=== PATIENT | male | born 1945 | race Caucasian/White ===

== ENCOUNTER 2017-06-02 23:53 | Emergency (ER) | payer OTHER ==
[2017-06-03 00:04] VITALS: TEMP 98.5; O2SAT 96
[2017-06-03] MEDS ORDERED: Albuterol-Ipratrop 3 mg / 0.5 (3 ml) UD INH STA (00:32)
--- NOTE | 2017-06-03 01:04 | C.PDOC ---
History Of Present Illness 71 y/o male with a Hx of diabetes c/o cough and SOB for 3 days. Patient has a paroxysmal cough and dyspnea in the ER. Denies fever, chills, chest pain, palpitations, or any other complaints. Time Seen by Provider: 06/03/17 00:30 Chief Complaint (Nursing): Shortness Of Breath History Per: Patient History/Exam Limitations: no limitations Onset/Duration Of Symptoms: Days (3) Current Symptoms Are (Timing): Still Present Severity: Mild Associated Symptoms: denies: Fever, Chills Recent travel outside of the [place]: No Additional History Per: Patient Past Medical History Vital Signs: Last Vital Signs Temp 98.5 F 06/03/17 00:01 Pulse 88 06/03/17 02:50 Resp 20 06/03/17 02:50 BP 128/78 06/03/17 02:50 Pulse Ox 96 06/07/17 01:11 - Medical History PMH: Diabetes Surgical History: No Surg Hx Family History: States: Unknown Family Hx - Social History Hx Alcohol Use: No Hx Substance Use: No - Immunization History Hx Tetanus Toxoid Vaccination: No Hx Influenza Vaccination: No Hx Pneumococcal Vaccination: No Review Of Systems Except As Marked, All Systems Reviewed And Found Negative. Constitutional: Negative for: Fever, Chills Cardiovascular: Negative for: Chest Pain, Palpitations Respiratory: Positive for: Cough, Shortness of Breath (Dyspnea) Physical Exam - Physical Exam Appears: Non-toxic, No Acute Distress Skin: Warm, Dry Head: Atraumatic, Normacephalic Oral Mucosa: Moist Cardiovascular: Rhythm Regular, No Murmur Respiratory: No Rales, Rhonchi (Bilateral rhonchi), No Wheezing Gastrointestinal/Abdominal: Soft, No Tenderness Neurological/Psych: Oriented x3, Normal Speech, Normal Cognition ED Course And Treatment - Laboratory Results Result Diagrams: 06/03/17 01:19 06/03/17 01:19 O2 Sat by Pulse Oximetry: 96 (RA) Pulse Ox Interpretation: Normal Medical Decision Making Medical Decision Making: Impression: 71 y/o male with a Hx of diabetes c/o cough and SOB for 3 days. Plans: * EKG * Blood work up * CXR * Albuterol * IV fluids * Nebulizer treatment On Re-examination pt feels better now, no SOB and is no longer having coughs. Disposition Counseled Patient/Family Regarding: Diagnosis - Disposition Referrals: [facility] [Outside] Disposition: HOME/ ROUTINE Disposition Time: 02:32 Condition: STABLE Prescriptions: Albuterol Sulfate [Proventil Hfa] 6.7 gm IH Q6 #1 hfa.aer.ad Azithromycin [Zithromax] 250 mg PO DAILY #7 tab MetFORMIN [glucoPHAGE] 1,000 mg PO BID #90 tab Instructions: Diabetes Mellitus Type 2 in Adults (ED), Acute Bronchitis (ED) Forms: [employer] ([place] Citizen) - POA Present On Arrival: None - Clinical Impression Clinical Impression: Bronchitis, Diabetes mellitus - Scribe Statement The provider has reviewed the documentation as recorded by the Scribe Janes healy All medical record entries made by the Scribe were at my direction and personally dictated by me. I have reviewed the chart and agree that the record accurately reflects my personal performance of the history, physical exam, medical decision making, and the department course for this patient. I have also personally directed, reviewed, and agree with the discharge instructions and disposition.
[2017-06-03 01:22] LABS: BASO # 0.1 K/uL (0.0-0.2); BASO % 1.4 % (0.0-2.0); EOS # 0.4 K/uL (0.0-0.7); EOS % 5.8 % (0.0-4.0); LYMPH # 1.8 K/uL (1.0-4.3); LYMPH % 25.1 % (20.0-40.0); MEAN CELL VOLUME 88.3 fL (80.0-94.0); MEAN CORPUSCULAR HGB CONC 32.9 g/dL (33.0-37.0); MONO # 0.9 K/uL (0.0-0.8); MONO % 12.3 % (0.0-10.0); NRBC % 0.1 % (0.0-2.0); RED CELL DISTRIBUTION WIDTH 14.7 % (11.5-14.5); WHITE BLOOD COUNT 7.2 K/uL (4.8-10.8)
[2017-06-03] MEDS ORDERED: Albuterol 0.083% Inhal Sol (2.5 mg/3 mL) UD ONE (01:24)
[2017-06-03 01:36] LABS: CHLORIDE 101 mmol/L (98-107); SODIUM 140 mmol/L (132-148)
[2017-06-03 01:37] LABS: POTASSIUM 4.3 mmol/L (3.6-5.2)
[2017-06-03 01:38] LABS: GFR AFRICAN-AMERICAN > 60
[2017-06-03 01:39] LABS: ALB/GLOB RATIO 1.3 (1.0-2.1); ALKALINE PHOSPHATASE 122 U/L (38-126); ALT/SGPT 57 U/L (21-72); AST/SGOT 30 U/L (17-59); BILIRUBIN,TOTAL 0.5 mg/dL (0.2-1.3); BLOOD UREA NITROGEN 19 mg/dL (9-20); CALCIUM 9.2 mg/dl (8.6-10.4); CARBON DIOXIDE 27 mmol/L (22-30); GLUCOSE,RANDOM 262 mg/dL (75-110); TOTAL PROTEIN 6.7 g/dL (6.3-8.3)
[2017-06-03 03:45] VITALS: RESP 20
[2017-06-03 03:48] VITALS: BP 128/78; PULSE 88
--- NOTE | 2017-06-03 08:31 | RAD ---
HISTORY: cough and SOB COMPARISON: No prior. TECHNIQUE: Chest PA and lateral FINDINGS: LUNGS: No active pulmonary disease. PLEURA: No significant pleural effusion identified. No pneumothorax apparent. Probable biapical pleural thickening CARDIOVASCULAR: Mild cardiomegaly. Tortuous/ectatic thoracic aorta OSSEOUS STRUCTURES: Moderate cervical and thoracic spondylosis. VISUALIZED UPPER ABDOMEN: Normal. OTHER FINDINGS: None. IMPRESSION: No consolidation to suggest an infiltrate Probable biapical pleural thickening Mild cardiomegaly. No bc pulmonary venous congestion
--- NOTE | 2017-06-04 12:28 | CARD ---
APPROVED REPORT EKG Measurement Heart [id number] KS 180P31 [id number] <Conclusion> Normal sinus rhythm Normal ECG
== END 2017-06-03 02:55 | disposition home or self-care (01) ==
LOC: C.ER 23:53
DX: J40 Bronchitis, not specified as acute or chronic (principal); E11.9 Type 2 diabetes mellitus without complications; Z79.84 Long term (current) use of oral hypoglycemic drugs
CPT/HCPCS: 71020; 80053; 83880; 84484; 85025; 85378; 93005; 99285; J2930

== ENCOUNTER 2017-06-05 08:45 | Emergency (ER) | payer OTHER ==
[2017-06-05 08:54] VITALS: O2SAT 95
[2017-06-05] MEDS ORDERED: Sodium Chloride 0.9% 1,000 ML IV ONE (09:38)
[2017-06-05] MEDS ORDERED: Sodium Chloride 0.9% 1,000 ML ONE (09:43)
[2017-06-05 09:51] LABS: HEMATOCRIT 44.2 % (35.0-51.0); MEAN CELL VOLUME 88.4 fL (80.0-94.0); MEAN CORPUSCULAR HEMOGLOBIN 29.3 pg (27.0-31.0); MEAN CORPUSCULAR HGB CONC 33.2 g/dL (33.0-37.0); MEAN PLATELET VOLUME 9.4 fL (7.2-11.7); RED CELL DISTRIBUTION WIDTH 14.3 % (11.5-14.5); WHITE BLOOD COUNT 6.2 K/uL (4.8-10.8)
[2017-06-05 10:07] LABS: CHLORIDE 100 mmol/L (98-107); POTASSIUM 4.2 mmol/L (3.6-5.2); SODIUM 136 mmol/L (132-148)
[2017-06-05 10:10] LABS: BLOOD UREA NITROGEN 24 mg/dL (9-20); CARBON DIOXIDE 26 mmol/L (22-30); GFR AFRICAN-AMERICAN > 60
[2017-06-05 10:11] LABS: CALCIUM 9.1 mg/dl (8.6-10.4); GLUCOSE,RANDOM 368 mg/dL (75-110)
--- NOTE | 2017-06-05 10:21 | C.PDOC ---
History Of Present Illness 71-year-old male, PMHx includes Diabetes, presents to the emergency department with complaints of a productive cough x3 days, that is associated upper abdominal pain. Patient seen in ER two days ago for same complaint and was prescribed Z-Pack that he is taking with minimal relief. Patient states he did not take any medication this morning, and ate breakfast. Time Seen by Provider: 06/05/17 09:27 Chief Complaint (Nursing): Cough, Cold, Congestion History Per: Patient History/Exam Limitations: no limitations Onset/Duration Of Symptoms: Days Current Symptoms Are (Timing): Still Present Past Medical History Reviewed: Historical Data, Nursing Documentation, Vital Signs Vital Signs: Last Vital Signs Temp 97.5 F L 06/05/17 10:27 Pulse 74 06/05/17 10:27 Resp 20 06/05/17 10:27 BP 131/74 06/05/17 10:27 Pulse Ox 95 06/05/17 11:14 Family History: States: No Known Family Hx - Social History Hx Alcohol Use: No Hx Substance Use: No - Immunization History Hx Tetanus Toxoid Vaccination: No Hx Influenza Vaccination: No Hx Pneumococcal Vaccination: No Review Of Systems Except As Marked, All Systems Reviewed And Found Negative. Constitutional: Negative for: Fever, Chills Respiratory: Positive for: Cough, Sputum Gastrointestinal: Positive for: Abdominal Pain. Negative for: Nausea, Vomiting Neurological: Negative for: Weakness, Numbness, Headache, Dizziness Physical Exam - Physical Exam Appears: Non-toxic, No Acute Distress (no respiratory distress) Skin: Warm, Dry, No Rash Head: Atraumatic, Normacephalic Eye(s): bilateral: Normal Inspection, PERRL, EOMI Ear(s): Bilateral: Normal Nose: Normal Oral Mucosa: Moist Lips: Normal Appearing Neck: Normal ROM Chest: Symmetrical Cardiovascular: Rhythm Regular, No Murmur Respiratory: Normal Breath Sounds, No Accessory Muscle Use, No Rales, No Rhonchi , No Wheezing Gastrointestinal/Abdominal: Bowel Sounds (active), Soft, No Tenderness, No Distention, No Guarding Back: Normal Inspection, No Vertebral Tenderness, No Paraspinal Tenderness Extremity: Bilateral: Atraumatic, No Pedal Edema, Normal Color And Temperature, Normal ROM Neurological/Psych: Oriented x3, Normal Speech Gait: Steady ED Course And Treatment - Laboratory Results Result Diagrams: 06/05/17 09:44 06/05/17 09:44 Lab Interpretation: No Changes Compared To Prior Results (hyperglycemia) ECG: Interpreted By Me, Viewed By Me ECG Rhythm: Sinus Rhythm ECG Interpretation: No Acute Changes Rate From EC O2 Sat by Pulse Oximetry: 95 Pulse Ox Interpretation: Normal Medical Decision Making Medical Decision Making: Impression: 71 y.o PMH DM with cough already on Z-pack Prior records reviewed: Patient was seen 2 days ago 06/03/17 these symptoms with full workup including labs and CXR, no pneumonia or DKA Plan: * Labs * IV NS Progress: Labs reviewed shows hyperglycemia, patient did not take meds this morning and ate breakfast no leukocytosis or other significant changes in labs Patient has no fever stable vitals and in no respiratory distress. patient is a smoker and smokes 10 cigarettes daily. I advised patient on smoking cessation and explain cough and symptoms may persist since he is a smoker. Inform patient to expect cough to last few weeks and to finish Z-pack use inhaler and can prescribe tessalon. Disposition Counseled Patient/Family Regarding: Diagnosis, Need For Followup, Rx Given - Disposition Disposition: HOME/ ROUTINE Disposition Time: 10:20 Condition: STABLE Additional Instructions: Finish course of antibiotics and use inhaler as needed Avoid smoking Take your diabetic medication and follow up with your doctor Prescriptions: Benzonatate [Tessalon Perles] 100 mg PO TID #30 sgl Instructions: Acute Bronchitis (ED) Forms: [facility] (Portuguese) - POA Present On Arrival: Poor Glycemic Control - Clinical Impression Clinical Impression: Bronchitis, Diabetes mellitus - Scribe Statement The provider has reviewed the documentation as recorded by the Scribe (Gerald Shay) All medical record entries made by the Scribe were at my direction and personally dictated by me. I have reviewed the chart and agree that the record accurately reflects my personal performance of the history, physical exam, medical decision making, and the department course for this patient. I have also personally directed, reviewed, and agree with the discharge instructions and disposition.
[2017-06-05 10:28] VITALS: BP 131/74; PULSE 74; RESP 20; TEMP 97.5
--- NOTE | 2017-06-07 12:29 | CARD ---
APPROVED REPORT EKG Measurement Heart [id number] MS 162P43 [id number] <Conclusion> Normal sinus rhythm Left anterior fascicular block Abnormal ECG
== END 2017-06-05 10:33 | disposition home or self-care (01) ==
LOC: C.ER 08:45
DX: J40 Bronchitis, not specified as acute or chronic (principal); F17.210 Nicotine dependence, cigarettes, uncomplicated; E11.65 Type 2 diabetes mellitus with hyperglycemia
CPT/HCPCS: 80048; 82948; 85027; 93005; 96360; 99285; J7040

== ENCOUNTER 2017-06-25 06:38 | Emergency (ER) | payer MEDICARE, OTHER ==
[2017-06-25] MEDS ORDERED: Sodium Chloride 0.9% 1,000 ML IV ONE (07:21)
--- NOTE | 2017-06-25 07:26 | C.PDOC ---
History Of Present Illness <Ji Limon - Last Filed: 06/25/17 09:26> <Suni Reveles - Last Filed: 06/25/17 19:27> 72 y/o male c/o intermittent stabbing pain in upper abdomen that radiates to the back x 3 days and to left upper quadrant, last bm 2 days ago. +subjective fever, no nausea. vomiting or diarrhea. c/o urinary hesitancy, no dysuria. no cp or sob. (Suni Reveles) <Ji Limon - Last Filed: 06/25/17 09:26> <Suni Reveles - Last Filed: 06/25/17 19:27> Time Seen by Provider: 06/25/17 07:10 Chief Complaint (Nursing): Abdominal Pain Past Medical History Family History: States: Unknown Family Hx - Social History Hx Alcohol Use: No Hx Substance Use: No - Immunization History Hx Tetanus Toxoid Vaccination: No Hx Influenza Vaccination: No Hx Pneumococcal Vaccination: No <Suni Reveles - Last Filed: 06/25/17 19:27> Vital Signs: Last Vital Signs Temp 98.6 F 06/25/17 12:24 Pulse 78 06/25/17 12:24 Resp 18 06/25/17 12:24 BP 141/84 06/25/17 12:24 Pulse Ox 95 06/25/17 13:13 Review Of Systems Constitutional: Positive for: Fever. Negative for: Chills Cardiovascular: Negative for: Chest Pain Respiratory: Negative for: Cough, Shortness of Breath Gastrointestinal: Positive for: Abdominal Pain. Negative for: Nausea, Vomiting Genitourinary: Positive for: Frequency. Negative for: Dysuria Musculoskeletal: Positive for: Back Pain Skin: Negative for: Rash <Suni Reveles - Last Filed: 06/25/17 19:27> Physical Exam - Physical Exam Appears: Other (appears very uncomfortable) Skin: Warm, Dry Head: Atraumatic, Normacephalic Oral Mucosa: Dry Lips: Other (chapped) Neck: Supple Chest: No Deformity, No Tenderness Cardiovascular: Rhythm Regular, No Murmur Respiratory: Decreased Breath Sounds (all cleary) Gastrointestinal/Abdominal: Bowel Sounds (hypoactive), Soft, Tenderness ( diffuse tenderness, worst in ruq, epigastric and luq with voluntary guarding. no distension ) Pulses: Left Femoral: Normal, Right Femoral: Normal, Left Dorsalis Pedis: Normal , Right Dorsalis Pedis: Normal Neurological/Psych: Oriented x3, Normal Speech, Normal Cognition <Suni Reveles - Last Filed: 06/25/17 19:27> ED Course And Treatment - Laboratory Results Result Diagrams: 06/25/17 07:56 06/25/17 07:56 <Ji Limon - Last Filed: 06/25/17 09:26> - Laboratory Results Result Diagrams: 06/25/17 07:56 06/25/17 07:56 ECG: Interpreted By Me, Viewed By Me ECG Rhythm: Sinus Rhythm ECG Interpretation: No Acute Changes Rate From EC (bpm) O2 Sat by Pulse Oximetry: 95 (ra) - Other Rad cxr X-Ray: Interpreted by Me, Viewed By Me Interpretation: FINDINGS: LUNGS: No active pulmonary disease. PLEURA: No significant pleural effusion identified, no pneumothorax apparent. CARDIOVASCULAR: Normal. OSSEOUS STRUCTURES: No significant abnormalities. VISUALIZED UPPER ABDOMEN: Normal. OTHER FINDINGS: None. IMPRESSION: No active disease. - CT Scan/US CT Abdomen and Pelvis with contrast Other Rad Studies (CT/US): Read By Radiologist, Radiology Report Reviewed CT/US Interpretation: FINDINGS: LOWER THORAX: Unremarkable. LIVER: Hepatic steatosis. No focal masses. No intrahepatic bile duct dilatation or perihepatic ascites. Punctate calcified granuloma. GALLBLADDER AND BILE DUCTS : Unremarkable. PANCREAS: Unremarkable. No gross lesion or ductal dilatation. SPLEEN: No significant interval change compared to the prior examination(s). Punctate calcifications consistent with exposure to granulomatous disease. ADRENALS: No significant interval change compared to the prior examination(s). KIDNEYS AND URETERS: Unremarkable. No hydronephrosis. No solid mass. VASCULATURE: Unremarkable. No aortic aneurysm. BOWEL: Diverticulosis without an acute inflammatory component or other associated pathologic process. APPENDIX: Normal appendix. PERITONEUM: Unremarkable. No free fluid. No free air. LYMPH NODES: Unremarkable. No enlarged lymph nodes. BLADDER: Unremarkable. REPRODUCTIVE: No significant interval change compared to the prior examination(s). BONES: No acute fracture. OTHER FINDINGS: None. IMPRESSION: No acute findings related to/ accounting for the clinical presentation. Additional benign and/or incidental findings described above. No significant interval change compared to the prior examination(s). <Suni Reveles - Last Filed: 06/25/17 19:27> Medical Decision Making <Ji Limon - Last Filed: 06/25/17 09:26> <Suni Reveles - Last Filed: 06/25/17 19:27> Medical Decision Making: pt with normal labs, neg ua, neg ct for acute pathology. will d/c pt with colace , tylenol and f/u gi, (Suni Reveles) Disposition <Ji Limon - Last Filed: 06/25/17 09:26> Counseled Patient/Family Regarding: Studies Performed, Diagnosis, Need For Followup, Rx Given - Disposition Disposition Time: 13:09 <Suni Reveles - Last Filed: 06/25/17 19:27> - Disposition Referrals: [facility] [Outside] [facility] [Outside] Prachi Horner [Staff Provider] - Disposition: HOME/ ROUTINE Condition: STABLE Additional Instructions: Follow up in medical clinic and with Dr Horner, GI doctor). Take Colace 1-2 times a day with meals, this is a stool softener. Drink more fluids. Return to ER for any worsening symptoms, or other concerns. Prescriptions: Docusate Sodium [Colace] 100 mg PO BID #60 capsule Instructions: Acute Abdominal Pain (ED), Gas and Bloating (ED) Forms: [facility] (Divehi), General Discharge Instructions - Clinical Impression Clinical Impression: Abdominal pain, Constipation
[2017-06-25] MEDS ORDERED: Iohexol 240 (50 ml) PO STA (07:49)
[2017-06-25] MEDS ORDERED: Sodium Chloride 0.9% 1,000 ML ONE (07:57)
[2017-06-25] MEDS ORDERED: Iohexol 240 (50 ml) ONE (07:57)
[2017-06-25 08:06] LABS: BASO # 0.1 K/uL (0.0-0.2); EOS # 0.3 K/uL (0.0-0.7); EOS % 3.9 % (0.0-4.0); HEMATOCRIT 45.6 % (35.0-51.0); LYMPH # 1.1 K/uL (1.0-4.3); LYMPH % 14.4 % (20.0-40.0); MEAN CELL VOLUME 86.6 fL (80.0-94.0); MEAN CORPUSCULAR HEMOGLOBIN 29.5 pg (27.0-31.0); MEAN CORPUSCULAR HGB CONC 34.1 g/dL (33.0-37.0); MEAN PLATELET VOLUME 9.1 fL (7.2-11.7); MONO # 0.7 K/uL (0.0-0.8); MONO % 8.8 % (0.0-10.0); RED CELL DISTRIBUTION WIDTH 14.5 % (11.5-14.5); WHITE BLOOD COUNT 7.5 K/uL (4.8-10.8)
[2017-06-25 08:14] LABS: CHLORIDE 101 mmol/L (98-107); POTASSIUM 4.4 mmol/L (3.6-5.2); SODIUM 140 mmol/L (132-148)
[2017-06-25 08:18] LABS: ALB/GLOB RATIO 1.4 (1.0-2.1); ALKALINE PHOSPHATASE 75 U/L (38-126); AST/SGOT 30 U/L (17-59); BILIRUBIN,TOTAL 0.8 mg/dL (0.2-1.3); CARBON DIOXIDE 26 mmol/L (22-30); GFR AFRICAN-AMERICAN > 60
[2017-06-25 08:19] LABS: ALT/SGPT 53 U/L (21-72); BLOOD UREA NITROGEN 12 mg/dL (9-20); CALCIUM 9.8 mg/dl (8.6-10.4); GLUCOSE,RANDOM 151 mg/dL (75-110)
[2017-06-25 08:24] LABS: RBC URINE 1 /hpf (0-3); URINE BILIRUBIN NEGATIVE (NEGATIVE); URINE BLOOD NEGATIVE (NEGATIVE); URINE COLOR Yellow (YELLOW); URINE GLUCOSE (UA) NORMAL (Normal); URINE KETONE NEGATIVE (NEGATIVE); URINE LEUKOCYTE ESTERASE NEG Leu/uL (Negative); URINE PROTEIN NEGATIVE (NEGATIVE); URINE UROBILINOGEN NORMAL mg/dL (0.2-1.0); WBC URINE < 1 /hpf (0-5)
--- NOTE | 2017-06-25 09:11 | RAD ---
HISTORY: luq pain, dec bs COMPARISON: 06/03/2027 [facility] FINDINGS: LUNGS: No active pulmonary disease. PLEURA: No significant pleural effusion identified, no pneumothorax apparent. CARDIOVASCULAR: Normal. OSSEOUS STRUCTURES: No significant abnormalities. VISUALIZED UPPER ABDOMEN: Normal. OTHER FINDINGS: None. IMPRESSION: No active disease.
[2017-06-25] MEDS ORDERED: Iodixanol 320 mg/ml 150 ml Bottle IV ONE (10:17)
--- NOTE | 2017-06-25 12:08 | CT ---
PROCEDURE: CT Abdomen and Pelvis with contrast HISTORY: Unspecified abdominal pain. COMPARISON: 10/11/2015. CT abdomen and pelvis. TECHNIQUE: Contrast dose: 100 cc Visipaque 320. Radiation dose: Total exam DLP = 1213.04 mGy-cm. This CT exam was performed using one or more of the following dose reduction techniques: Automated exposure control, adjustment of the mA and/or kV according to patient size, and/or use of iterative reconstruction technique. FINDINGS: LOWER THORAX: Unremarkable. LIVER: Hepatic steatosis. No focal masses. No intrahepatic bile duct dilatation or perihepatic ascites. Punctate calcified granuloma. GALLBLADDER AND BILE DUCTS: Unremarkable. PANCREAS: Unremarkable. No gross lesion or ductal dilatation. SPLEEN: No significant interval change compared to the prior examination(s). Punctate calcifications consistent with exposure to granulomatous disease. ADRENALS: No significant interval change compared to the prior examination(s). KIDNEYS AND URETERS: Unremarkable. No hydronephrosis. No solid mass. VASCULATURE: Unremarkable. No aortic aneurysm. BOWEL: Diverticulosis without an acute inflammatory component or other associated pathologic process. APPENDIX: Normal appendix. PERITONEUM: Unremarkable. No free fluid. No free air. LYMPH NODES: Unremarkable. No enlarged lymph nodes. BLADDER: Unremarkable. REPRODUCTIVE: No significant interval change compared to the prior examination(s). BONES: No acute fracture. OTHER FINDINGS: None. IMPRESSION: No acute findings related to/accounting for the clinical presentation. Additional benign and/or incidental findings described above. No significant interval change compared to the prior examination(s).
[2017-06-25 12:25] VITALS: BP 141/84; PULSE 78; RESP 18; TEMP 98.6
[2017-06-25 13:11] VITALS: O2SAT 95
== END 2017-06-25 13:18 | disposition home or self-care (01) ==
LOC: C.ER 06:38 → SUPCPDRO 06:38 → C.ER 13:18
DX: K59.00 Constipation, unspecified (principal); R10.9 Unspecified abdominal pain
CPT/HCPCS: 71010; 74177; 80053; 81001; 83690; 85025; 96374; 96375; 99285; J2270; J7040; Q9966; Q9967

== ENCOUNTER 2017-08-07 10:50 | Emergency (ER) | payer OTHER ==
[2017-08-07 11:05] VITALS: BMI 33.2
[2017-08-07 11:07] VITALS: RESP 18; TEMP 98; O2SAT 96
[2017-08-07 11:49] LABS: BASO # 0.1 K/uL (0.0-0.2); EOS # 0.2 K/uL (0.0-0.7); EOS % 2.9 % (0.0-4.0); HEMATOCRIT 45.3 % (35.0-51.0); LYMPH # 1.4 K/uL (1.0-4.3); LYMPH % 18.4 % (20.0-40.0); MEAN CELL VOLUME 87.6 fL (80.0-94.0); MEAN CORPUSCULAR HEMOGLOBIN 29.4 pg (27.0-31.0); MEAN CORPUSCULAR HGB CONC 33.6 g/dL (33.0-37.0); MEAN PLATELET VOLUME 9.5 fL (7.2-11.7); MONO # 0.7 K/uL (0.0-0.8); MONO % 8.8 % (0.0-10.0); NRBC % 0.1 % (0.0-2.0); RED CELL DISTRIBUTION WIDTH 14.4 % (11.5-14.5); WHITE BLOOD COUNT 7.6 K/uL (4.8-10.8)
[2017-08-07] MEDS ORDERED: Sodium Chloride 0.9% 500 ML IV ONE ×2 (11:51→12:03)
[2017-08-07 12:19] LABS: RBC URINE < 1 /hpf (0-3); URINE BILIRUBIN NEGATIVE (NEGATIVE); URINE BLOOD NEGATIVE (NEGATIVE); URINE COLOR Yellow (YELLOW); URINE GLUCOSE (UA) 3+ mg/dL (Normal); URINE KETONE NEGATIVE (NEGATIVE); URINE LEUKOCYTE ESTERASE NEG Leu/uL (Negative); URINE PROTEIN NEGATIVE (NEGATIVE); URINE UROBILINOGEN NORMAL mg/dL (0.2-1.0); WBC URINE < 1 /hpf (0-5)
[2017-08-07 12:26] LABS: CHLORIDE 98 mmol/L (98-107); SODIUM 131 mmol/L (132-148)
[2017-08-07 12:29] LABS: ALB/GLOB RATIO 1.6 (1.0-2.1); ALKALINE PHOSPHATASE 93 U/L (38-126); ALT/SGPT 56 U/L (21-72); AST/SGOT 39 U/L (17-59); BLOOD UREA NITROGEN 15 mg/dL (9-20); CARBON DIOXIDE 23 mmol/L (22-30); GFR AFRICAN-AMERICAN > 60; TOTAL PROTEIN 6.7 g/dL (6.3-8.3)
[2017-08-07 12:30] LABS: CALCIUM 9.4 mg/dl (8.6-10.4); GLUCOSE,RANDOM 336 mg/dL (75-110)
[2017-08-07] MEDS ORDERED: (Novolin R) Insulin Human Regular 100 units/ml vial IV STA (12:31)
--- NOTE | 2017-08-07 12:35 | C.PDOC ---
History Of Present Illness 72 year old male presents to ED for evaluation of upper abdominal pain radiating to his back that developed last night at 11pm, but pain worsened in the morning. Pt states that he has history of peptic ulcer, and current symptoms feel similar. Patient also states that his blood sugar level was over 400 last night, states that he ran out of his Metformin 1 week ago. Patient does not have PMD, and has been going to ER to get his diabetes med. Patient denies chest pain, shortness of breath, vomiting, diarrhea, dysuria, or fever. Time Seen by Provider: 08/07/17 10:56 Chief Complaint (Nursing): Abdominal Pain History Per: Patient History/Exam Limitations: no limitations Onset/Duration Of Symptoms: Days (1) Current Symptoms Are (Timing): Still Present Severity: Mild Radiation Of Pain To:: Back Quality Of Discomfort: "Pain" Associated Symptoms: Back Pain. denies: Fever, Chills, Chest Pain, Urinary Symptoms Exacerbating Factors: None Alleviating Factors: None Additional History Per: Patient Past Medical History Reviewed: Historical Data, Nursing Documentation, Vital Signs Vital Signs: Last Vital Signs Temp 98 F 08/07/17 13:22 Pulse 72 08/07/17 13:22 Resp 18 08/07/17 13:22 BP 144/91 H 08/07/17 13:22 Pulse Ox 96 08/07/17 13:22 - Medical History PMH: No Chronic Diseases Family History: States: No Known Family Hx - Social History Hx Alcohol Use: No Hx Substance Use: No - Immunization History Hx Tetanus Toxoid Vaccination: No Hx Influenza Vaccination: No Hx Pneumococcal Vaccination: No Review Of Systems Except As Marked, All Systems Reviewed And Found Negative. Constitutional: Negative for: Fever, Chills Cardiovascular: Negative for: Chest Pain, Palpitations Respiratory: Negative for: Cough, Shortness of Breath Gastrointestinal: Positive for: Abdominal Pain (upper). Negative for: Nausea, Vomiting, Diarrhea, Constipation Genitourinary: Negative for: Dysuria, Frequency, Hematuria Musculoskeletal: Positive for: Back Pain Neurological: Negative for: Headache, Dizziness Physical Exam - Physical Exam Appears: Well, Non-toxic, No Acute Distress Skin: Normal Color, Warm, Dry, No Rash Head: Normacephalic Eye(s): bilateral: Normal Inspection Oral Mucosa: Moist Cardiovascular: Rhythm Regular Respiratory: Normal Breath Sounds, No Rales, No Rhonchi, No Wheezing Gastrointestinal/Abdominal: Bowel Sounds, Soft, Tenderness (epigastric mild TTP) , No Guarding, No Rebound, Other ((-)Castillo's) Back: Normal Inspection, No CVA Tenderness Extremity: Normal ROM Neurological/Psych: Oriented x3 ED Course And Treatment - Laboratory Results Result Diagrams: 08/07/17 11:43 08/07/17 11:43 ECG: Interpreted By Me, Viewed By Me (NSR 78 bpm, left axis deviation, no acute ST/T wave changes) ECG Interpretation: No Acute Changes O2 Sat by Pulse Oximetry: 96 (RA) Pulse Ox Interpretation: Normal Progress Note: Blood work, UA, EKG ordered and reviewed. Patient was given IV Protonix, IV NS bolus, IV insulin. Reevaluation Time: 13:10 Reassessment Condition: Improved (Patient reassessed, is resting comfortably and states he feels better. On exam, abdomen is soft and nontender. Patient given Rx for metformin, and he was instructed to follow up with medical clinic in 1-2 days without fail. He understands he needs a regular PMD/clinic to monitor his diabetes. Patient understands he should return to ED if symptoms worsen.) Disposition Counseled Patient/Family Regarding: Diagnosis, Need For Followup, Rx Given - Disposition Referrals: [facility] [Outside] Disposition: HOME/ ROUTINE Disposition Time: 13:10 Condition: STABLE Additional Instructions: FOLLOW UP IN THE MEDICAL CLINIC IN 1-2 DAYS USE MEDICATIONS DIRECTED RETURN TO ER IF SYMPTOMS WORSEN Prescriptions: MetFORMIN [glucoPHAGE] 1,000 mg PO BID #60 tab Pantoprazole Sodium [Protonix] 20 mg PO DAILY #30 ect Instructions: Diabetic Hyperglycemia (ED) Forms: [employer] (Yoruba) Print Language: BENGALI - Clinical Impression Clinical Impression: Hyperglycemia, Peptic ulcer - Scribe Statement The provider has reviewed the documentation as recorded by the Jaquelineibelly Henderson All medical record entries made by the Jaquelineibelly were at my direction and personally dictated by me. I have reviewed the chart and agree that the record accurately reflects my personal performance of the history, physical exam, medical decision making, and the department course for this patient. I have also personally directed, reviewed, and agree with the discharge instructions and disposition.
[2017-08-07] MEDS ORDERED: (Novolin R) Insulin Human Regular 100 units/ml vial ONE (12:46)
[2017-08-07 13:23] VITALS: BP 144/91; PULSE 72
--- NOTE | 2017-08-09 11:05 | CARD ---
APPROVED REPORT EKG Measurement Heart [id number] [place] 174P25 [id number] <Conclusion> Normal sinus rhythm Left axis deviation Minimal voltage criteria for LVH, may be normal variant Abnormal ECG
== END 2017-08-07 13:30 | disposition home or self-care (01) ==
LOC: C.ER 10:50
DX: E11.65 Type 2 diabetes mellitus with hyperglycemia (principal); K27.9 Peptic ulcer, site unspecified, unspecified as acute or chronic, without hemorrhage or perforation; Z79.84 Long term (current) use of oral hypoglycemic drugs
CPT/HCPCS: 80053; 81001; 82009; 82948; 83690; 85025; 87086; 96374; 99285; C9113; J7040

== ENCOUNTER 2017-10-03 05:51 | Emergency (ER) | payer OTHER ==
[2017-10-03 05:52] VITALS: BMI 33.2
[2017-10-03 06:10] VITALS: O2SAT 96
[2017-10-03 06:52] LABS: URINE BILIRUBIN NEGATIVE (NEGATIVE); URINE BLOOD NEGATIVE (NEGATIVE); URINE CLARITY Clear (Clear); URINE COLOR Yellow (YELLOW); URINE GLUCOSE (UA) NORMAL (Normal); URINE LEUKOCYTE ESTERASE NEG Leu/uL (Negative); URINE NITRATE NEGATIVE (NEGATIVE); URINE PROTEIN NEGATIVE (NEGATIVE); URINE UROBILINOGEN NORMAL mg/dL (0.2-1.0)
[2017-10-03 06:53] LABS: BASO # 0.1 K/uL (0.0-0.2); BASO % 1.1 % (0.0-2.0); EOS # 0.3 K/uL (0.0-0.7); EOS % 4.5 % (0.0-4.0); LYMPH # 1.3 K/uL (1.0-4.3); LYMPH % 21.8 % (20.0-40.0); MEAN CELL VOLUME 88.4 fL (80.0-94.0); MEAN CORPUSCULAR HEMOGLOBIN 30.5 pg (27.0-31.0); MEAN CORPUSCULAR HGB CONC 34.5 g/dL (33.0-37.0); MEAN PLATELET VOLUME 9.7 fL (7.2-11.7); MONO # 0.5 K/uL (0.0-0.8); MONO % 8.7 % (0.0-10.0); NEUT # 3.7 K/uL (1.8-7.0); NEUT % 63.9 % (50.0-75.0); RBC 4.93 Mil/uL (4.40-5.90); RED CELL DISTRIBUTION WIDTH 14.3 % (11.5-14.5); WHITE BLOOD COUNT 5.9 K/uL (4.8-10.8)
[2017-10-03 06:55] LABS: ALB/GLOB RATIO 1.3 (1.0-2.1); ALBUMIN 3.9 g/dL (3.5-5.0); ALT/SGPT 53 U/L (21-72); AST/SGOT 36 U/L (17-59); BLOOD UREA NITROGEN 15 mg/dL (9-20); CALCIUM 9.4 mg/dl (8.6-10.4); GFR AFRICAN-AMERICAN > 60; GFR NON-AFRICAN AMERICAN > 60; LIPASE 133 U/L (23-300)
[2017-10-03] MEDS ORDERED: Morphine 4 MG/ML VIAL ONE (06:58)
[2017-10-03] MEDS ORDERED: Lactated Ringer's 1,000 ML IV ONE (07:13)
[2017-10-03 07:20] VITALS: BP 193/89; PULSE 63; RESP 20; TEMP 98.2
--- NOTE | 2017-10-03 07:32 | C.PDOC ---
History Of Present Illness 72 yr old male with PMHx of renal colic, brought in via EMS, presents to the ER for evaluation of crampy abdominal pain for the past 1 day. Patient was diagnosed 3 days ago at a [facility] hospital. Patient states the right groin pain has resolved and now has periumbilical and epigastric pain, taking 1 tab of Percocet 4x a day, but has no renal colic pain. Denies fever, chills, chest pain , SOB, nausea, vomiting, diarrhea, dysuria, hematuria, weakness or numbness. taking Percocet 1 tab Q6H for the past 2 days for passed renal stone 3 days ago eval @ [facility]. Time Seen by Provider: 10/03/17 06:55 Chief Complaint (Nursing): Abdominal Pain History Per: Patient History/Exam Limitations: no limitations Onset/Duration Of Symptoms: Days (1) Current Symptoms Are (Timing): Still Present Location Of Pain/Discomfort: Epigastric, Periumbilical Past Medical History Reviewed: Historical Data, Nursing Documentation, Vital Signs Vital Signs: Last Vital Signs Temp 98.2 F 10/03/17 06:27 Pulse 63 10/03/17 06:27 Resp 20 10/03/17 06:27 BP 193/89 H 10/03/17 06:27 Pulse Ox 96 10/03/17 07:48 Family History: States: No Known Family Hx - Social History Hx Alcohol Use: No Hx Substance Use: No - Immunization History Hx Tetanus Toxoid Vaccination: No Hx Influenza Vaccination: No Hx Pneumococcal Vaccination: No Review Of Systems Except As Marked, All Systems Reviewed And Found Negative. Constitutional: Negative for: Fever, Chills Cardiovascular: Negative for: Chest Pain Respiratory: Negative for: Shortness of Breath Gastrointestinal: Positive for: Abdominal Pain. Negative for: Nausea, Vomiting , Diarrhea Genitourinary: Negative for: Dysuria, Hematuria Neurological: Negative for: Weakness, Numbness Physical Exam - Physical Exam Appears: Non-toxic, In Acute Distress (Mild) Skin: Warm, Dry, No Rash Head: Atraumatic, Normacephalic Oral Mucosa: Moist Respiratory: Normal Breath Sounds, No Rales, No Rhonchi, No Stridor, No Wheezing Gastrointestinal/Abdominal: Soft, No Guarding, No Rebound, Other (Dull and tympanic) Back: Normal Inspection, No CVA Tenderness Extremity: Normal ROM, No Swelling Neurological/Psych: Oriented x3, Normal Speech, Normal Motor, Normal Sensation ED Course And Treatment - Laboratory Results Result Diagrams: 10/03/17 06:40 10/03/17 06:40 Lab Interpretation: Normal (ua neg, trop neg.) ECG: Interpreted By Me ECG Rhythm: Sinus Rhythm O2 Sat by Pulse Oximetry: 96 (RA) Pulse Ox Interpretation: Normal - Radiology CXR: Interpreted by Me, Viewed By Me CXR Interpretation: Yes: No Acute Disease - Other Rad X-Ray - Obstructive Series X-Ray: Interpreted by Me, Viewed By Me Interpretation: +FOS Medical Decision Making Medical Decision Making: PLAN: * X-Ray - Obstructive Series * Troponin * CBC * CMP * Urinalysis * Morphine IVP * Lactated Ringer IV NOTE: epigastric and rodrigo-umbilical colic and h/o same. normal w/u 10/26 and 06/[address] scans. Pt seen @ [facility] 2 wks ago ? dx of renal colic and 2-3 days ago @ [facility] for same. Pt taking Percocet for chronic pains of ? 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 Seems pt evaluated for prob passing kidney stone R side approx 2-3 days ago @ [facility], now with chronic constipation due to same, seen on films and normal labs/UA. though atherosclerotic dz noted on prior CT's, LOW susp of mesenteeric ischemia at this time. pt asymptomatic after ED tx. Disposition Doctor Will See Patient In The: Office Counseled Patient/Family Regarding: Studies Performed, Diagnosis - Disposition Referrals: [facility] [Outside] [facility] [Outside] Disposition: HOME/ ROUTINE Disposition Time: 07:43 Condition: GOOD Additional Instructions: STOp taking Percocet daily- this is used ONLY for acute pain and causes SEVERE CONSTIPATION Drink a laxative now- one bottle of Mag Citrate- and re-evaluate your abdominal discomfort after using the bathroom 2-3 times today Continue Colace 100 mg twice a day (stool softner) to help PREVENT constipation. Drink more water. eat 7 fresh fruits and vegetables daily. Follow-up in our outpatient Clinic as needed. Prescriptions: Docusate [Colace] 100 mg PO BID #60 cap Magnesium Citrate [[facility] Magnesium Citrate] 300 ml PO ONCE PRN #1 bottle PRN Reason: Constipation Instructions: Constipation (ED), Gas and Bloating (ED) Forms: [employer] ([place] Islander) - Clinical Impression Clinical Impression: Abdominal colic, Abdominal bloating - Scribe Statement The provider has reviewed the documentation as recorded by the Jaquelineibe Marsha Montalvo Provider Attestation: All medical record entries made by the Scribe were at my direction and personally dictated by me. I have reviewed the chart and agree that the record accurately reflects my personal performance of the history, physical exam, medical decision making, and the department course for this patient. I have also personally directed, reviewed, and agree with the discharge instructions and disposition.
--- NOTE | 2017-10-03 09:41 | RAD ---
PROCEDURE: Radiographs of the chest and abdomen (obstructive series) HISTORY: Epigastric pain COMPARISON: No prior. TECHNIQUE: AP radiograph of the chest, with upright and supine radiographs of the abdomen. FINDINGS: CHEST: Lungs: The lungs are clear. Cardiovascular: Normal size heart. There is unfolding of the aorta. No pulmonary vascular congestion. Pleura: No pleural fluid. No pneumothorax. Other findings: None. ABDOMEN AND PELVIS: Bowel: There is moderate amount of stool in the ascending colon. No evidence of mechanical obstruction. Free air: None. Bones: Unremarkable. Other findings: None. IMPRESSION: Nonspecific bowel gas pattern. No evidence of mechanical bowel obstruction. Clear lungs.
--- NOTE | 2017-10-06 09:44 | CARD ---
APPROVED REPORT EKG Measurement Heart [id number] <Conclusion> Normal sinus rhythm Left axis deviation Abnormal ECG
== END 2017-10-03 08:00 | disposition home or self-care (01) ==
LOC: C.ER 05:51
DX: R10.84 Generalized abdominal pain (principal)
CPT/HCPCS: 74022; 80053; 81001; 83690; 84484; 85025; 93005; 96374; 99284; J2270

== ENCOUNTER 2017-11-30 12:04 | Emergency (ER) | payer OTHER ==
[2017-11-30 12:04] VITALS: BMI 33.2
[2017-11-30 12:25] VITALS: TEMP 98.6
--- NOTE | 2017-11-30 13:46 | RAD ---
PROCEDURE: Right Ankle Radiographs. HISTORY: RIGHT ANKLE PAIN AFTER INJURY COMPARISON: None available. FINDINGS: BONES: No acute displaced fracture. Degenerative changes. JOINTS: No dislocation. SOFT TISSUES: Soft tissue swelling. . No evidence of radiopaque foreign body. OTHER FINDINGS: None. IMPRESSION: Soft tissue swelling. No acute displaced fracture or dislocation identified. If high clinical index of suspicion persists, cross-sectional imaging may be considered for further evaluation. Otherwise if symptoms persist or if there is clinical concern, x-ray follow-up in 7-10 days should be considered.
--- NOTE | 2017-11-30 14:11 | C.PDOC ---
History Of Present Illness 72 year old male presents to the ER with a complaint of right ankle pain after he tripped at work yesterday. Patient states he was walking down the stairs, missed a step, and twisted his right ankle. Patient tried to stay at work but was unable to bear weight, he was been taking motrin with no improvement, notes he has his family helping him move around at home. Denies head injury or LOC. Time Seen by Provider: 11/30/17 12:54 Chief Complaint (Nursing): Lower Extremity Problem/Injury History Per: Patient History/Exam Limitations: no limitations Onset/Duration Of Symptoms: Days Recent travel outside of the [place]: No - Ankle/Foot Description Of Injury: Twisted Currently Unable To: Bear Weight Past Medical History Reviewed: Historical Data, Nursing Documentation, Vital Signs Vital Signs: Last Vital Signs Temp 98.6 F 11/30/17 12:24 Pulse 90 11/30/17 12:24 Resp 18 11/30/17 12:24 BP 151/79 H 11/30/17 12:24 Pulse Ox 97 11/30/17 14:14 Family History: States: Unknown Family Hx - Social History Hx Alcohol Use: No Hx Substance Use: No - Immunization History Hx Tetanus Toxoid Vaccination: No Hx Influenza Vaccination: No Hx Pneumococcal Vaccination: No Review Of Systems Except As Marked, All Systems Reviewed And Found Negative. Musculoskeletal: Positive for: Foot Pain Physical Exam - Physical Exam Appears: Non-toxic Skin: Warm, Dry Head: Atraumatic, Normacephalic Eye(s): bilateral: Normal Inspection Extremity: Other (Right ankle swelling, ecchymosis from medial malleolus to posterior ankle, tenderness to medial malleolus. Normal plantar flexion, pain with dorsiflexion. Tenderness along right distal tibia.) Pulses: Left Dorsalis Pedis: Normal, Right Dorsalis Pedis: Normal Neurological/Psych: Oriented x3, Normal Speech, Normal Motor, Normal Sensation Gait: With Assistance ED Course And Treatment O2 Sat by Pulse Oximetry: 97 (room air) Pulse Ox Interpretation: Normal - Other Rad Right ankle x-ray X-Ray: Viewed By Me, Read By Radiologist Interpretation: PROCEDURE: Right Ankle Radiographs. HISTORY: RIGHT ANKLE PAIN AFTER INJURY. COMPARISON: None available. FINDINGS: BONES: No acute displaced fracture. Degenerative changes. JOINTS: No dislocation. SOFT TISSUES: Soft tissue swelling. . No evidence of radiopaque foreign body. OTHER FINDINGS: None. IMPRESSION: Soft tissue swelling. No acute displaced fracture or dislocation identified. If high clinical index of suspicion persists, cross-sectional imaging may be considered for further evaluation. Otherwise if symptoms persist or if there is clinical concern, x-ray follow-up in 7-10 days should be considered. Progress Note: Tylenol administered for pain with relief. Right ankle x-ray ordered, results were negative. Disposition Counseled Patient/Family Regarding: Studies Performed, Diagnosis, Need For Followup, Rx Given - Disposition Referrals: Krystian Layne III, MD [Staff Provider] - [facility] [Outside] Disposition: HOME/ ROUTINE Disposition Time: 14:15 Condition: STABLE Additional Instructions: FOLLOW UP WITH ORTHOPEDICS/PODIATRY WITHIN 1 WEEK ELEVATE ANKLE MUCH POSSIBLE USE PAIN MEDICATION NEEDED RETURN TO ER IF SYMPTOMS WORSEN Prescriptions: Acetaminophen [Tylenol 325mg tab] 650 mg PO Q6 PRN #30 tab PRN Reason: pain/fever MetFORMIN [glucoPHAGE] 1,000 mg PO BID #60 tab Instructions: Ankle Sprain (DC) Forms: [employer] (Albanian) Print Language: NORTHERN IRISH - POA Present On Arrival: Falls Or Trauma - Clinical Impression Clinical Impression: Right ankle sprain, Medication refill - Scribe Statement The provider has reviewed the documentation as recorded by the Scribelly Tony All medical record entries made by the Scribe were at my direction and personally dictated by me. I have reviewed the chart and agree that the record accurately reflects my personal performance of the history, physical exam, medical decision making, and the department course for this patient. I have also personally directed, reviewed, and agree with the discharge instructions and disposition.
[2017-11-30 15:18] VITALS: BP 142/81; PULSE 86; RESP 16; O2SAT 98
== END 2017-11-30 15:17 | disposition home or self-care (01) ==
LOC: C.ER 12:04
DX: S93.401A Sprain of unspecified ligament of right ankle, initial encounter (principal); X50.1XXA Overexertion from prolonged static or awkward postures, initial encounter; Y92.89 Other specified places as the place of occurrence of the external cause; Y99.8 Other external cause status; Z76.0 Encounter for issue of repeat prescription
CPT/HCPCS: 73610; 97116; 97161; 99285; G8978; G8979; G8980